=== PATIENT | female | born 1955 | race Caucasian/White ===

== ENCOUNTER 2023-12-17 17:33 | Observation (INO) ==
[2023-12-17] MEDS: Enoxaparin 40 MG/0.4 ML SYR SUBCUT SCH (22:55)
[2023-12-17] MEDS ORDERED: Polyethylene Glycol 3350 17 GM PACKET PO PRN (23:44)
[2023-12-18 07:48] LABS: Calcium 9.6 mg/dL (8.6-10.3); Creatinine, Serum 0.65 mg/dL (0.51-0.95); HDL Cholesterol 54.8 mg/dL; Potassium 3.9 mmol/L (3.5-5.0); eGFR CKD-EPI 96.4 (>60)
[2023-12-18] MEDS: Aspirin EC 81 mg TAB.EC (enteric coated) PO SCH (08:24)
[2023-12-18] MEDS: Simvastatin 10 mg TAB (NF) PO SCH (08:25)
[2023-12-18 08:30] LABS: ABS Eosinophils 0.2 10^3/uL (0.0-0.5); ABS Lymphocytes 1.1 10^3/uL (1.0-4.8); ABS Monocytes 0.4 10^3/uL (0.0-0.9); ABS Neutrophils 3.1 10^3/uL (1.5-7.6); Eosinophil % 4.3 %; Hematocrit 34.1 % (35-45); Hemoglobin 11.3 g/dL (11.5-14.3); Lymphocyte % 21.8 %; Mean Corpuscular Hgb Conc 33.1 g/dL (31-36); Mean Corpuscular Volume 93.8 fL (80-97); Mean Platelet Volume 8.7 fL (7.5-11.2); Platelet Count 164 10^3/uL (150-450); Red Blood Count 3.63 10^6/uL (3.63-4.92); Red Cell Distribution Width 14.8 % (12-17); White Blood Count 4.8 10^3/uL (3.8-11.8)
[2023-12-18 13:25] LABS: High Sensitivity Troponin 1 Hr 5 pg/mL (<15)
[2023-12-18] MEDS: COVID VAC 24-25 (12+) (Moderna) Syringe 0.5 mL IM ONE (14:00)
[2023-12-18 17:13] LABS: Urine Appearance Clear; Urine Bilirubin Negative (Negative); Urine Blood Negative (Negative); Urine Color Light-Yellow; Urine Glucose Negative (Negative); Urine Ketones Negative (Negative); Urine Nitrite Negative (Negative); Urine Protein Negative (Negative); Urine Urobilinogen Negative (Negative); Urine pH 7.5 (5.0-8.0)
[2023-12-19 06:26] LABS: ABS Basophils 0.1 10^3/uL (0.0-0.1); ABS Eosinophils 0.2 10^3/uL (0.0-0.5); ABS Monocytes 0.5 10^3/uL (0.0-0.9); ABS Neutrophils 4.2 10^3/uL (1.5-7.6); Eosinophil % 2.6 %; Hematocrit 34.6 % (35-45); Hemoglobin 11.3 g/dL (11.5-14.3); Lymphocyte % 17.2 %; Mean Corpuscular Hemoglobin 30.8 pg (27-33); Mean Corpuscular Hgb Conc 32.7 g/dL (31-36); Mean Corpuscular Volume 94.1 fL (80-97); Mean Platelet Volume 7.8 fL (7.5-11.2); Nucleated Red Blood Cells % 0.1 %/100WBC (0.0-0.8); Platelet Count 175 10^3/uL (150-450); Red Blood Count 3.68 10^6/uL (3.63-4.92); Red Cell Distribution Width 14.3 % (12-17); White Blood Count 5.9 10^3/uL (3.8-11.8)
[2023-12-19 06:44] LABS: Calcium 9.7 mg/dL (8.6-10.3); Creatinine, Serum 0.71 mg/dL (0.51-0.95); Magnesium 1.9 mg/dL (1.9-2.7); Potassium 3.8 mmol/L (3.5-5.0); eGFR CKD-EPI 93.1 (>60)
[2023-12-19] MEDS ORDERED: Metoprolol Tartrate 5 mg VIAL 5 ml VIAL (1 mg/ml) ONE (14:10)
[2023-12-19] MEDS ORDERED: DOBUTamine 2000 MCG/ML IVPREMX 500 MG/250 ML BAG IV ONE (14:10)
[2023-12-19] MEDS ORDERED: Atropine 0.1 MG/ML 10 ml SYR (1 mg) ONE (14:10)
[2023-12-19] MEDS ORDERED: Sulfur Hexaflouride MICROSPHR 25 MG VIAL ONE (15:15)
[2023-12-19] MEDS: Sulfur Hexaflouride MICROSPHR 25 MG VIAL IV PRN (15:15)
[2023-12-19] MEDS: Nystatin TOP POWDER 15 GM BTL TOPICAL SCH (23:49)
[2023-12-20] MEDS: Senna TAB 8.6 mg TAB PO PRN (02:28)
[2023-12-20 06:21] LABS: Hematocrit 35.7 % (35-45); Hemoglobin 11.8 g/dL (11.5-14.3); Mean Corpuscular Hemoglobin 30.6 pg (27-33); Mean Corpuscular Hgb Conc 32.9 g/dL (31-36); Mean Platelet Volume 8.1 fL (7.5-11.2); Platelet Count 158 10^3/uL (150-450); Red Blood Count 3.84 10^6/uL (3.63-4.92); Red Cell Distribution Width 14.6 % (12-17)
[2023-12-20 06:42] LABS: Albumin 3.8 g/dL (3.2-5.2); Albumin/Globulin Ratio 1.9 (1-3); Calcium 9.7 mg/dL (8.6-10.3); Creatinine, Serum 0.59 mg/dL (0.51-0.95); Potassium 3.8 mmol/L (3.5-5.0); Total Bilirubin 0.8 mg/dL (0.2-1.0); Total Protein 5.8 g/dL (6.4-8.9); eGFR CKD-EPI 98.7 (>60)
[2023-12-20 10:42] VITALS: BP 167/76
== END 2023-12-20 15:28 | disposition home or self-care (01) ==
LOC: INTOOBSV 19:26 → MEDTELE 19:26 → SUATTDRO 19:39
PROVIDERS: ADMIT Student in an Organized Health Care Education/Training Program; ATTEND Internal Medicine